=== PATIENT | female | born 1950 | race Caucasian/White ===

== ENCOUNTER 2017-10-22 10:04 | Inpatient (IN) | payer OTHER ==
[~2017-10-22] VITALS: Ht 167.6 cm; Wt 85.3 kg
[~2017-10-22 10:04] MED LIST: NAVANE10 MG PO; PRINIVIL10 MG PO; QVAR 80 MCG IN7.3 GM IH; SEREVENT DISKU50 MCG IH; SPIRIVA1 INHALATI IH; VENTOLIN HFA18 GM IH
[2017-10-22 10:57] LABS: HEMATOCRIT 34.8 % (36.0-46.0); HEMOGLOBIN 12.3 G/DL (11.9-15.5); MCHC 35.3 G/DL (30.0-36.0); MCV 84.9 FL (83-99); PLATELET COUNT 210 K/uL (156-360); RBC DIS.WIDTH-SD 43.5 % (39-53); WHITE BLOOD COUNT 12.5 K/uL (4.1-10.2)
[2017-10-22 11:07] LABS: CHLORIDE 96 mEq/L (99-109)
[2017-10-22 11:08] LABS: SODIUM 128 mEq/L (136-147)
[2017-10-22 11:09] LABS: GLUCOSE 146 mg/dL (70-99)
[2017-10-22 11:13] LABS: CREATININE 0.7 mg/dL (0.6-1.3); GFR ESTIMATE (CALCULATED) > 59 mL/min/
[2017-10-22 11:14] LABS: UREA NITROGEN (BUN) 8 mg/dL (9-23)
[2017-10-22] MEDS ORDERED: THIORIDAZINE HC25 MG PO ×2 (14:06→14:07)
[2017-10-22] MEDS ORDERED: THIORIDAZINE HC10 MG PO (14:06)
[2017-10-22] MEDS ORDERED: DULERA 200 MCG/13 GM IH (14:07)
[2017-10-22] MEDS ORDERED: MIRALAX119 GM PO (14:07)
[2017-10-22] MEDS ORDERED: SPIRIVA RESPIMAT4 GM IH (14:08)
[2017-10-22] MEDS ORDERED: IPRATROPIUM BRO30 ML BOTH NARES (14:08)
[2017-10-22] MEDS ORDERED: OMEPRAZOLE40 M1 PO (14:09)
[2017-10-22] MEDS ORDERED: GABAPENTIN400 MG PO (14:09)
[2017-10-22] MEDS ORDERED: ATORVASTATIN CA10 MG PO (14:10)
[2017-10-22] MEDS ORDERED: PREDNISONE10 MG PO (14:10)
[2017-10-22] MEDS ORDERED: CENTRUM COMPLE1 EACH PO (14:10)
[2017-10-22] MEDS ORDERED: IBUPROFEN800 MG PO (14:10)
[2017-10-22] MEDS ORDERED: DOXYCYCLINE HY100 M3 PO (14:11)
[2017-10-22] MEDS ORDERED: ASPIR-LOW81 MG PO (14:22)
[2017-10-22] MEDS ORDERED: ALBUTEROL2.5 MG/3 M IH (14:25)
[2017-10-22 16:16] VITALS: BP 180/79
[2017-10-22 19:35] VITALS: BP 149/62
[2017-10-22 23:35] VITALS: BP 143/67
[2017-10-23] VITALS (8 sets, daily range): BP systolic 109–181; BP diastolic 53–84
[2017-10-23 06:36] LABS: HEMATOCRIT 33.3 % (36.0-46.0); HEMOGLOBIN 11.4 G/DL (11.9-15.5); MCH 29.5 PG (29.0-34.0); MCHC 34.2 G/DL (30.0-36.0); MCV 86.3 FL (83-99); PLATELET COUNT 190 K/uL (156-360); RBC DIS.WIDTH-CV 14.2 % (11.8-14.6); RED BLOOD COUNT 3.86 M/uL (3.80-5.20); WHITE BLOOD COUNT 13.8 K/uL (4.1-10.2)
[2017-10-23 07:06] LABS: CHLORIDE 97 MEQ/L (99-109); CREATININE 0.7 MG/DL (0.6-1.3); GFR ESTIMATE (CALCULATED) > 59 mL/min/; GLUCOSE 170 mg/dL (70-99); POTASSIUM 4.1 MEQ/L (3.7-5.4); SODIUM 129 MEQ/L (136-147); UREA NITROGEN (BUN) 10 mg/dL (9-23)
[2017-10-24 00:38] VITALS: BP 169/84
[2017-10-24 04:13] VITALS: BP 129/60
[2017-10-24 06:00] LABS: HEMATOCRIT 34.4 % (36.0-46.0); HEMOGLOBIN 11.7 G/DL (11.9-15.5); MCH 29.4 PG (29.0-34.0); MCV 86.4 FL (83-99); PLATELET COUNT 191 K/uL (156-360); RBC DIS.WIDTH-CV 14.2 % (11.8-14.6); RBC DIS.WIDTH-SD 44.2 % (39-53); RED BLOOD COUNT 3.98 M/uL (3.80-5.20); WHITE BLOOD COUNT 13.2 K/uL (4.1-10.2)
[2017-10-24 06:24] LABS: CHLORIDE 98 MEQ/L (99-109); CREATININE 0.6 MG/DL (0.6-1.3); GFR ESTIMATE (CALCULATED) > 59 mL/min/; GLUCOSE 151 mg/dL (70-99); SODIUM 131 MEQ/L (136-147); UREA NITROGEN (BUN) 12 mg/dL (9-23)
[2017-10-24 08:18] VITALS: BP 168/69
[2017-10-24 12:09] VITALS: BP 148/70
[2017-10-24 16:10] VITALS: BP 160/79
[2017-10-24 20:00] VITALS: BP 164/73
[2017-10-25 00:12] VITALS: BP 130/59
[2017-10-25 04:01] VITALS: BP 125/63
[2017-10-25 07:35] VITALS: BP 170/80
[2017-10-25 09:30] LABS: CHLORIDE 95 MEQ/L (99-109); CREATININE 0.6 MG/DL (0.6-1.3); GFR ESTIMATE (CALCULATED) > 59 mL/min/; GLUCOSE 220 mg/dL (70-99); POTASSIUM 3.9 MEQ/L (3.7-5.4); SODIUM 128 MEQ/L (136-147); UREA NITROGEN (BUN) 11 mg/dL (9-23)
[2017-10-25 11:29] VITALS: BP 113/75
[2017-10-25 15:40] VITALS: BP 167/70
[2017-10-25 23:39] VITALS: BP 141/65
[2017-10-26 05:48] LABS: HEMATOCRIT 32.4 % (36.0-46.0); HEMOGLOBIN 11.1 G/DL (11.9-15.5); MCH 29.6 PG (29.0-34.0); MCHC 34.3 G/DL (30.0-36.0); MCV 86.4 FL (83-99); PLATELET COUNT 164 K/uL (156-360); RBC DIS.WIDTH-SD 43.9 % (39-53); RED BLOOD COUNT 3.75 M/uL (3.80-5.20); WHITE BLOOD COUNT 10.5 K/uL (4.1-10.2)
[2017-10-26 06:21] LABS: CHLORIDE 98 MEQ/L (99-109); CREATININE 0.6 MG/DL (0.6-1.3); GFR ESTIMATE (CALCULATED) > 59 mL/min/; GLUCOSE 161 mg/dL (70-99); UREA NITROGEN (BUN) 10 mg/dL (9-23)
[2017-10-26 06:22] LABS: SODIUM 135 MEQ/L (136-147)
[2017-10-26 07:00] VITALS: BP 153/71
[2017-10-26 15:24] VITALS: BP 163/68
[2017-10-26 19:54] VITALS: BP 148/72
[2017-10-27 00:26] VITALS: BP 140/66
[2017-10-27 07:34] VITALS: BP 169/72
[2017-10-27] MEDS ORDERED: MEDROL DOSEPAK4 MG PO (09:55)
[2017-10-27] MEDS ORDERED: AUGMENTIN875 MG PO (09:55)
== END 2017-10-27 11:40 | disposition home or self-care (01) | DRG 190 ==
LOC: EME 10:04 → EDOF 13:11 → ENRESERV 13:12 → 2EAST 14:21 → EDOF 14:21 → ENRESERV 14:21 → 2EASTP 16:03 → 2EAST 10-23 05:47
PROVIDERS: Hospitalist; Internal Medicine
DX: J44.1 Chronic obstructive pulmonary disease with (acute) exacerbation (principal); J96.21 Acute and chronic respiratory failure with hypoxia; J44.0 Chronic obstructive pulmonary disease with (acute) lower respiratory infection; J20.9 Acute bronchitis, unspecified; E87.1 Hypo-osmolality and hyponatremia; I10 Essential (primary) hypertension; Z87.891 Personal history of nicotine dependence; E66.9 Obesity, unspecified; Z68.30 Body mass index [BMI] 30.0-30.9, adult; E78.5 Hyperlipidemia, unspecified; K21.9 Gastro-esophageal reflux disease without esophagitis; Z99.81 Dependence on supplemental oxygen; Z87.01 Personal history of pneumonia (recurrent)
CPT/HCPCS: 71046; 80048; 85027; 87070; 87205; 93005; 94010; 94640; 94640 76; 94799; 99202; 99281; 99285; J0295; J1644; J2920; J2930; J7050; J7512